=== PATIENT | female | born 1925 | race Caucasian/White ===

== ENCOUNTER → 2016-11-02 | Outpatient (CLI) | payer MEDICARE, BC | END | disposition home or self-care (01) | LOC: GMAM 14:37 | PROVIDERS: ATTEND Family Medicine | DX: N30.00 Acute cystitis without hematuria (principal) ==

== ENCOUNTER 2017-05-15 22:45 | Emergency (ER) | payer MEDICARE, BC ==
[2017-05-15] MEDS ORDERED: ACETAMINOPHEN 500 MG TAB PO ONE (23:01)
--- NOTE | 2017-05-15 23:05 | ED.PDOC ---
History of Present Illness - General Chief Complaint: Fever Stated Complaint: fever, chills Time Seen by Provider: 05/15/17 23:00 Source: patient, RN notes reviewed, Vital Signs reviewed, family - son, EMS Exam Limitations: no limitations - History of Present Illness Initial Comments: Patient arrived at ER via EMS with c/o chills and vomiting X1. Patient was in her usual state of health until a couple of hours ago. She had come into town with her caregiver earlier today. Son reports she did not eat much dinner but was doing well. They were watching TV and she wanted a snack so he gave her a small amount of ice cream. After that she became chilled and c/o feeling cold. They got her into bed. She vomited once, just a small amount per son. They bundled her up in blankets and called EMS. Son reports she "did not look good". Patients only complaints are a little nausea and being cold. She did have a fever to 102 on arrival to ER. 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 Denies: malaise EENTM: States: no symptoms reported Respiratory: States: no symptoms reported. Denies: cough, short of breath Cardiology: States: no symptoms reported. Denies: chest pain, palpitations Gastrointestinal/Abdominal: States: nausea, vomiting - X 1. Denies: abdominal pain, constipation, diarrhea Genitourinary: States: no symptoms reported. 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 Denies: headache All other Systems: No Change from Baseline Past Medical History (General) - Patient Medical History Hx Stroke: Yes - left side flaccid Hx MRSA: No Surgical History: no surgical history - Vaccination History Hx Influenza Vaccination: Yes Hx Pneumococcal Vaccination: No - Social History Hx Alcohol Use: No - Female History Patient is a Female of Child Bearing Age (10 -59 yrs old): No Family Medical History - Family History Father Family History: Unknown Physical Exam - Physical Exam General Appearance: Alert, Comfortable, No apparent distress, Well Developed, Well Groomed, Well Hydrated, Well Nourished ENT Exam: hearing grossly normal Neck: non-tender, supple, normal inspection Respiratory: lungs clear, normal breath sounds, no respiratory distress, no accessory muscle use Cardiovascular/Chest: regular rate, rhythm, no gallop, systolic murmur Gastrointestinal/Abdominal: normal bowel sounds, non tender, soft, no organomegaly, no pulsatile mass Extremity: normal inspection, no pedal edema Neurologic: alert, normal mood/affect, oriented x 3, motor weakness - L side, old Skin Exam: normal color, warm/dry Comments: Vital Signs 05/15/17 22:57 Temperature 102.0 F H Pulse Rate [ 112 H Right] Respiratory 18 Rate Blood Pressure 136/66 [Left Arm] O2 Sat by Pulse 97 Oximetry Progress - Progress Progress: 05/15/17 23:59 CXR shows a patchy RLL infiltrate per Radiologist. Will give IV dose of Zithromax here tonight and switch to PO tomorrow. Patient and family are agreeable with plan. - Results/Orders Results/Orders: Laboratory Tests 05/15/17 05/15/17 05/15/17 23:15 23:15 23:30 WBC 4.2 L RBC 4.02 L Hgb 12.6 Hct 37.3 MCV 92.6 MCH 31.3 H MCHC 33.8 RDW 14.0 Plt Count 171 MPV 7.6 Absolute Neuts (auto) 3.50 Absolute Lymphs (auto) 0.30 L Absolute Monos (auto) 0.20 Absolute Eos (auto) 0.00 Absolute Basos (auto) 0.00 Neutrophils % 85.0 H Lymphocytes % 8.1 L Monocytes % 5.8 Eosinophils % 0.7 L Basophils % 0.4 Sodium 139 Potassium 3.6 Chloride 110 Carbon Dioxide 21 Anion Gap 11.6 L BUN 23 H Creatinine 1.04 BUN/Creatinine Ratio 22.1 H Random Glucose 102 Serum Osmolality 281.4 Calcium 8.1 L Total Bilirubin 0.4 AST 25 ALT 13 Alkaline Phosphatase 59 Serum Total Protein 6.4 Albumin 2.8 L Globulin 3.6 H Albumin/Globulin Ratio 0.8 L Urine Color Yellow Urine Appearance Clear Urine pH 5.0 Ur Specific [place] 1.020 Urine Protein Negative Urine Glucose (UA) Negative Urine Ketones Trace Urine Blood Negative Urine Nitrite Negative Urine Bilirubin Negative Urine Urobilinogen 0.2 Ur Leukocyte Esterase Trace H Urine RBC 0-1 Urine WBC 5-10 H Ur Epithelial Cells 0-1 Urine Bacteria 1+ Urine Mucus Trace - EKG/XRAY/CT XRAY: chest - RLL patchy infiltrate per Radiologist Departure - Departure Clinical Impression: Pneumonia Qualifiers: Pneumonia type: due to unspecified organism Laterality: right Lung location: lower lobe of lung Qualified Code(s): J18.1 - Lobar pneumonia, unspecified organism Time of Disposition: : Disposition: Discharge to Home or Self Care Condition: Good Departure Forms: ED Discharge - Pt. Copy, Patient Portal Self Enrollment Instructions: DI for Pneumonia -- Adult Diet: resume usual diet Activity: increase activity as tolerated Prescriptions: Azithromycin Tab [Zithromax] 250 mg PO QD #4 tab Home Medications: Ambulatory Orders ALPRAZolam [Xanax] 0.25 mg PO 05/15/17 Clopidogrel Bisulfate 75 mg PO 05/15/17 Docusate Sodium 100 mg PO 05/15/17 FLUoxetine HCL [Prozac] 10 mg PO 05/15/17 Felodipine [Felodipine ER] 5 mg PO 05/15/17 Gabapentin 100 mg PO 05/15/17 HYDROcodone 7.5MG/APAP 325MG [Mcdaniel 7.5/325] 1 tab PO PRN 05/15/17 Meloxicam 7.5 mg PO 05/15/17 Memantine HCl [Namenda Xr] 14 mg PO 05/15/17 Oxybutynin Chloride 5 mg PO 05/15/17 Probiotic Product [Probiotic] 1 tab PO 05/15/17 Azithromycin Tab [Zithromax] 250 mg PO QD #4 tab 05/16/17
--- NOTE | 2017-05-15 23:37 | RAD ---
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 Left lung is clear. No pneumothorax or pleural effusion. Aortic atherosclerosis. Normal cardiac silhouette. Impression: Patchy right lower lobe airspace opacities concerning for aspiration/pneumonia. Follow-up chest radiograph after treatment is recommended to ensure resolution. Electronically signed by: Judah Herbert MD 05/15/2017 11:36 PM DIFFUSION FURNACE OPERATOR
[2017-05-16] MEDS ORDERED: AZITHROMYCIN IV 500 MG in SODIUM CHLORIDE 0.9% 250ML 250 ML IVPB ONE ×2
[2017-05-16] MEDS ORDERED: AZITHROMYCIN IV 500 MG VIAL IVPB ONE (00:01)
[2017-05-16] MEDS ORDERED: SODIUM CHLORIDE 0.9% 250ML 250 ML ONE (00:01)
[2017-05-16 01:33] VITALS: BP 101/59; TEMP 99; O2SAT 98
== END 2017-05-16 01:48 | disposition home or self-care (01) ==
LOC: ER 22:45
DX: J18.1 Lobar pneumonia, unspecified organism (principal); Z86.73 Personal history of transient ischemic attack (TIA), and cerebral infarction without residual deficits
CPT/HCPCS: 36415; 71010; 80053; 81001; 85025; J0456; J7050

== ENCOUNTER → 2017-06-02 | Outpatient (CLI) | payer MEDICARE, BC | END | disposition home or self-care (01) | LOC: GMAM 14:42 | PROVIDERS: ATTEND Family Medicine | DX: D51.3 Other dietary vitamin B12 deficiency anemia (principal) ==

== ENCOUNTER → 2017-06-15 | Outpatient (CLI) | payer MEDICARE, BC | END | disposition home or self-care (01) | LOC: GMAM 16:55 | PROVIDERS: ATTEND Family Medicine | DX: N39.0 Urinary tract infection, site not specified (principal) ==